=== PATIENT | female | born 1975 | race Two or more races ===

== ENCOUNTER 2019-02-02 15:17 | Inpatient (IN) ==
[2019-02-02] MEDS ORDERED: RINGER'S SOLUTION,LACTATED 1,000 ML IV PRN (18:00)
[2019-02-02] MEDS ORDERED: PENICILLIN G POTASSIUM 5 MILLIONUNT in DEXTROSE 5 % IN WATER 100 ML IV ONE ×2 (18:10)
[2019-02-02] MEDS ORDERED: RINGER'S SOLUTION,LACTATED 1,000 ML IV ONE (18:10)
[2019-02-02] MEDS ORDERED: DEXTROSE 5%-LACTATED RINGERS 1,000 ML IV PRN (18:10)
[2019-02-02] MEDS ORDERED: OXYTOCIN/DEXTROSE 5%-WATER 30 UNITS/500 ML BAG IV ONE (18:10)
[2019-02-02] MEDS ORDERED: MISOPROSTOL 100 MCG TABLET VG PRN (18:10)
[2019-02-02] MEDS ORDERED: ONDANSETRON 4 MG TAB.RAPDIS PO PRN (18:10)
[2019-02-02 18:24] LABS: Hematocrit 37.6 % (37.0-47.0); Hemoglobin 12.7 gm/dL (12.5-16.0); Mean Cell Volume 88.7 fl (78-100); Mean Corpuscular Hgb Conc 33.8 g/dl (32-36); Mean Platelet Volume 10.3 fl (8-12.5); Neutrophil # 8.9 K/mm3 (1.3-6.0); Neutrophil % 70.5 % (42-75.0); Platelet Count 373 K/mm3 (150-450); Red Blood Count 4.24 M/mm3 (4.2-5.4); Red Cell Distribution Width 12.6 % (11.5-14.0); White Blood Count 12.6 K/mm3 (4.0-10.5)
[2019-02-02 18:41] LABS: Albumin * 2.7 gm/dl (3.4-5.0); Anion Gap 12.9 mmol/L (6.8-13.8); BUN/Creatinine Ratio 22.4 (9.0-21.6); Bilirubin, Total 0.2 mg/dL (0.0-1.1); Ca. Corrected For Albumin 9.5 mg/dL (8.4-10.2); Calcium * 8.8 mg/dL (7.9-10.9); Carbon Dioxide 23.9 mmol/L (24-32.6); Potassium 3.8 mmol/L (3.4-4.6); Total Protein 6.8 gm/dL (6.2-8.2)
[2019-02-02] MEDS: PENICILLIN G POTASSIUM 2.5 MILLIONUNT in DEXTROSE 5 % IN WATER 100 ML IV SCH ×2 (22:53)
[2019-02-02 23:51] LABS: Cocaine Ur Negative (NEGATIVE); Urine Barbiturate Negative (NEGATIVE); Urine Benzodiazepines Negative (NEGATIVE); Urine Opiates Negative (NEGATIVE); Urine PCP Negative (NEGATIVE); Urine THC Negative (NEGATIVE)
[2019-02-03] MEDS: PENICILLIN G POTASSIUM 2.5 MILLIONUNT in DEXTROSE 5 % IN WATER 100 ML IV SCH ×4 (02:17→05:56)
[2019-02-03] MEDS ORDERED: ONDANSETRON HCL/PF 2 MG/ML VIAL IV PRN (04:33)
[2019-02-03] MEDS ORDERED: BUPIVACAINE HCL/0.9 % NACL/PF 250 ML EP PRN (04:33)
[2019-02-03] MEDS ORDERED: NALOXONE HCL 1 MG/1 ML SYRG IV PRN (04:33)
[2019-02-03] MEDS ORDERED: fentaNYL CITRATE/PF 50 MCG/ML AMPUL ONE (04:44)
[2019-02-03] MEDS ORDERED: BUPIVACAINE HCL/0.9 % NACL/PF 250 ML CARTRIDGE ONE (04:44)
[2019-02-03] MEDS ORDERED: fentaNYL CITRATE/PF 50 MCG/ML AMPUL IT SCH (04:45)
--- NOTE | 2019-02-03 05:16 | ANES ---
Anesthesia Pre Procedure Eval Vitals/Labs: Last Vital Signs Temp 37.0 C 02/02/19 20:12 Pulse 115 H 02/02/19 20:12 Resp 18 02/02/19 20:12 BP 140/95 H 02/02/19 20:12 Pulse Ox 99 02/02/19 20:12 HOME MEDICATIONS [id number] 400 mcg-om3 35 mg-dha 25 mg-epa 5 mg-fish oil chewable tablet 2 tab PO tab 08/10/18 [Last Taken 02/02/19] inulin 2 gram chewable tablet g PO tab 08/10/18 [Last Taken 02/02/19] lactobacillus combination no.8 3 billion cell capsule 3,000 mmu cells PO DAILY 08/10/18 [Last Taken Unknown] docusate sodium 100 mg capsule 100 mg PO DAILY PRN 11/22/18 [Last Taken 02/01/19] breast pump See Dose Instructions .ROUTE .MEDSUPPLY #1 ea 01/05/19 [Last Taken Unknown] heparin (porcine) 5,000 unit/mL (1 mL) injection cartridge 5,000 unit SUBCUT Q12H #16 ml 01/24/19 [Last Taken 02/02/19] Allergies/Adverse Reactions: Allergies Allergy/AdvReac Type Severity Reaction Status Date / Time No Known Allergies Allergy Verified 02/02/19 18:17 - Planned Procedure Planned Procedure: MEDICAL INDUCTION Medication List Reviewed:: Yes Allergies Verified: Yes Medical History (Updated 08/10/18 @ 17:14 by Adam Noonan DO) Cervical disc disorder at C6-C7 level with radiculopathy (Chronic) History of deep venous thrombosis (Chronic) Occurred while on OCPs Advanced maternal age affecting , antepartum (Acute) Herniated cervical disc C-6 Anxiety No medication Depression no medication Kidney stone [place] teeth extracted Anemia as a teenager DVT (deep venous thrombosis) Left leg- taking OCP, she was testing MTHFR. Femur fracture, left Shoulder fracture, right Surgical History (Updated 01/06/18 @ 11:18 by Madina Starks LPN) H/O kyphoplasty History of open reduction and internal fixation (ORIF) procedure branden to left femur age 17 Family History (Updated 08/10/18 @ 13:31 by Jeanne Shipley RN) Mother Diabetes Hypertension Pulmonary embolism Grandmother , paternal Alzheimers disease Father Alive and well - Family Anesthesia History Family History:: no untoward family reactions to anesthesia, no familial bleeding tendencies, no family history of clotting disorders, no family history of premature - Airway/Neck/Teeth Within Normal Limits:: Yes Teeth Condition: intact Neck Exam: full range of motion Mallampatti Score: 2 Thyromental (T-M) distance: > 6 cm Mandibulo Hyoid distance: > 3 cm - Respiratory Respiratory Physical: lungs clear Smoking Status: Never smoker Sleep Apnea currently treated: No Sleep Apnea by current assessment: No - Cardiovascular Tolerate Activity: Fair Heart Sounds: S1 & S2, Regular - Anesthesia Assessment and Plan ASA Class: PS, II Anesthesia Type Plan: Epidural - CSE for labor epidural
--- NOTE | 2019-02-03 05:34 | HP ---
Chief Complaint - Chief Complaint Date of Service: 02/03/19 Time of Service: 05:33 Chief Complaint: medical induction of labor History of Present Illness: 43 yo admitted at 37 wks for induction of labor due to gestational hypertension. This complicated by AMA, GHTN, h/o DVT, herniated disc C6-7, h/o anxiety/depression (not active). Rh positive Rubella immune GBS positive Medical History (Updated 02/03/19 @ 05:34 by Adam Noonan DO) Cervical disc disorder at C6-C7 level with radiculopathy (Chronic) History of deep venous thrombosis (Chronic) Occurred while on OCPs Advanced maternal age affecting , antepartum (Acute) Herniated cervical disc C-6 Anxiety No medication Depression no medication Kidney stone [place] teeth extracted Anemia as a teenager DVT (deep venous thrombosis) Left leg- taking OCP, she was testing MTHFR. Femur fracture, left Shoulder fracture, right Surgical History: Surgical History (Updated 02/03/19 @ 05:34 by Adam Noonan DO) H/O kyphoplasty History of open reduction and internal fixation (ORIF) procedure branden to left femur age 17 Family History: Family History (Updated 08/10/18 @ 13:31 by Jeanne Shipley RN) Mother Diabetes Hypertension Pulmonary embolism Grandmother , paternal Alzheimers disease Father Alive and well Social History: (Last Reviewed 02/03/19 @ 05:55 by Adam Noonan DO) Social History: Marital status: household members: significant other, children number of children: 2 current occupational status: employed 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 Highest education level completed: Bachelor's degree Service: No Tobacco: Smoking Status: Never smoker Alcohol: alcohol intake: current alcohol intake frequency: holiday/special occasion details: none since + UPT Substance Use: substance use type: does not use Dietary Habits: caffeine: Yes caffeine comment: 2/week Type: coffee Exercise: Physical activity type: none Review Of Systems (GEN) - Review of Systems Generalized/Overall Review: Present: No Symptoms Reported EENTM: Present: No Symptoms Reported Respiratory: Present: No Symptoms Reported Cardiac: Present: No Symptoms Reported Abdominal: Present: No Symptoms Reported Genitourinary: Present: No Symptoms Reported Musculoskeletal: Present: No Symptoms Reported Neurological: Present: No Symptoms Reported Skin: Present: No Symptoms Reported Endocrine: Present: No Symptoms Reported Immunizations: IMMUNIZATION HX Immunizations Up to Date Yes Allergies/Adverse Reactions: Allergies Allergy/AdvReac Type Severity Reaction Status Date / Time No Known Allergies Allergy Verified 02/02/19 18:17 Home Medications: HOME MEDICATIONS [id number] 400 mcg-om3 35 mg-dha 25 mg-epa 5 mg-fish oil chewable tablet 2 tab PO tab 08/10/18 [Last Taken 02/02/19] inulin 2 gram chewable tablet g PO tab 08/10/18 [Last Taken 02/02/19] lactobacillus combination no.8 3 billion cell capsule 3,000 mmu cells PO DAILY 08/10/18 [Last Taken Unknown] docusate sodium 100 mg capsule 100 mg PO DAILY PRN 11/22/18 [Last Taken 02/01/19] breast pump See Dose Instructions .ROUTE .MEDSUPPLY #1 ea 01/05/19 [Last Taken Unknown] heparin (porcine) 5,000 unit/mL (1 mL) injection cartridge 5,000 unit SUBCUT Q12H #16 ml 01/24/19 [Last Taken 02/02/19] Exam - Exam Vital Signs: Vital Signs - Last Taken Temp 37.0 C 02/02/19 20:12 Pulse 115 H 02/02/19 20:12 Resp 18 02/02/19 20:12 BP 140/95 H 02/02/19 20:12 Pulse Ox 99 02/02/19 20:12 Constitutional: Present: Alert, Oriented x3, Cooperative, No distress ENT Exam: Present: hearing grossly normal Breasts: Present: Exam deferred Respiratory: Present: lungs clear, no respiratory distress Cardiovascular/Chest: Present: regular rate, rhythm Abdomen: Present: soft, nontender, no rebound tenderness, other - gravid /Rectal: Present: Other - 3/50/-2 Extremity: Present: no pedal edema, no calf tenderness Skin Exam: Present: normal color, warm/dry, no cyanosis Lymphatic: Present: no adenopathy Neurologic: Present: alert, normal mood/affect, oriented x 3 Appearance: Present: appropriate appearance, appropriate insight Eye contact: Present: cooperative, good eye contact Thoughts: Present: normal thought pattern, normal mood /affect Diagnostic Studies: Abnormal Lab Results 09/04/19 09/04/19 Range/Units 18:20 18:20 WBC 12.6 H (4.0-10.5) K/mm3 Immature Gran % (Auto) 1.00 H (0.001-0.429) % Immature Gran # (Auto) 0.12 H (0.000-0.0310) K/mm3 Neutrophils # 8.9 H (1.3-6.0) K/mm3 Carbon Dioxide 23.9 L (24-32.6) mmol/L BUN/Creatinine Ratio 22.4 H (9.0-21.6) Random Glucose 120 H (70-110) mg/dL ALT 17 L (19-67) U/L Albumin 2.7 L (3.4-5.0) gm/dl Laboratory Results WBC 12.6 K/mm3 (4.0-10.5) H 02/02/19 18:20 RBC 4.24 M/mm3 (4.2-5.4) 02/02/19 18:20 Hgb 12.7 gm/dL (12.5-16.0) 02/02/19 18:20 Hct 37.6 % (37.0-47.0) 02/02/19 18:20 MCV 88.7 fl (78-100) 02/02/19 18:20 MCH 30.0 pg (27-31) 02/02/19 18:20 MCHC 33.8 g/dl (32-36) 02/02/19 18:20 RDW 12.6 % (11.5-14.0) 02/02/19 18:20 Plt Count 373 K/mm3 (150-450) 02/02/19 18:20 MPV 10.3 fl (8-12.5) 02/02/19 18:20 Immature Gran % (Auto) 1.00 % (0.001-0.429) H 02/02/19 18:20 Immature Gran # (Auto) 0.12 K/mm3 (0.000-0.0310) H 02/02/19 18:20 70.5 % (42-75.0) 02/02/19 18:20 20.9 % (20-51) 02/02/19 18:20 7.1 % (0.0-9) 02/02/19 18:20 0.3 % (0.0-3.0) 02/02/19 18:20 0.2 % (0.0-1.0) 02/02/19 18:20 Nucleated RBC % 0.0 k/mm3 (0-1) 02/02/19 18:20 8.9 K/mm3 (1.3-6.0) H 02/02/19 18:20 2.63 k/mm3 (1.5-3.5) 02/02/19 18:20 0.9 k/mm3 (0.0-1.0) 02/02/19 18:20 0.0 k/mm3 (0.0-0.7) 02/02/19 18:20 Absolute Basophils 0.0 k/mm3 (0.0-0.1) 02/02/19 18:20 Sodium 136 mmol/L (132-142) 02/02/19 18:20 136 mmol/L (130-142) 02/02/19 18:20 Potassium 3.8 mmol/L (3.4-4.6) 02/02/19 18:20 Chloride 103 mmol/L (97-106) 02/02/19 18:20 Carbon Dioxide 23.9 mmol/L (24-32.6) L 02/02/19 18:20 12.9 mmol/L (6.8-13.8) 02/02/19 18:20 BUN 19 mg/dL (3-23) D 02/02/19 18:20 0.85 mg/dL (0.4-1.4) 02/02/19 18:20 Est GFR (Non-Af Amer) 78 mL/min (60-130) 02/02/19 18:20 22.4 (9.0-21.6) H 02/02/19 18:20 120 mg/dL (70-110) H 02/02/19 18:20 Calcium 8.8 mg/dL (7.9-10.9) 02/02/19 18:20 Calcium Adj for Albumin 9.5 mg/dL (8.4-10.2) 02/02/19 18:20 0.2 mg/dL (0.0-1.1) 02/02/19 18:20 AST 19 U/L (0-48) 02/02/19 18:20 ALT 17 U/L (19-67) L 02/02/19 18:20 130 U/L (50-170) 02/02/19 18:20 6.8 gm/dL (6.2-8.2) 02/02/19 18:20 2.7 gm/dl (3.4-5.0) L 02/02/19 18:20 Negative (NEGATIVE) 02/02/19 19:15 Negative (NEGATIVE) 02/02/19 19:15 Ur Phencyclidine Scrn Negative (NEGATIVE) 02/02/19 19:15 Urine Amphetamine Negative (NEGATIVE) 02/02/19 19:15 U Benzodiazepines Scrn Negative (NEGATIVE) 02/02/19 19:15 Negative (NEGATIVE) 02/02/19 19:15 Negative (NEGATIVE) 02/02/19 19:15 NST reactive. Assessment/Plan - Assessment/Plan (1) Gestational hypertension Assessment: Admit for pitocin induction of labor. Epidural PRN. SCDs while in bed. IV PCN per GBS protocol. Problem: Acute Qualifiers: Trimester: third trimester Qualified Code(s): O13.3 - Gestational [-induced] hypertension without significant proteinuria, third trimester (2) Group B streptococcal carriage complicating Problem: Acute (3) Cervical disc disorder at C6-C7 level with radiculopathy Problem: Chronic (4) History of deep venous thrombosis Problem: Chronic (5) Advanced maternal age affecting , antepartum Problem: Acute
--- NOTE | 2019-02-03 05:38 | ANES ---
Post Anesthesia Discharge - Transfer of Care Transfer of Care handoff given to nurse: Yes - Discharge from PACU Discharge from PACU when meets criteria: Yes - Comfortable post CSE.
--- NOTE | 2019-02-03 05:44 | ANES ---
Anesthesia Procedure Note Procedure Note: ANESTHESIA PROCEDURE NOTE Date of Procedure: [02/03/2019 Time of procedure: 5:15 AM. Performed by: NADINE Wayne CRNA, MSN Line Ordering Clinician: La Calixto RN. Preprocedure diagnosis: Active labor, labor pain. Post procedure diagnosis: Same. Procedure:Epidural for labor analgesia L3-4. Indications: Labor pain. Findings: See below. Details of the procedure: The patient was placed on the side of the bed in sitting positionand prepped with DuraPrep then draped in a sterile fashion. Lidocaine 1% was infiltrated to the skin and subcutaneous tissues at the level of the L3-4 interspace. An 18-gauge Touhy needle was used to approach the epidural space with loss of resistance technique. Once loss of resistance was achieved a 27-gauge spinal needle was passed through the epidural needle and CSF was contacted. After CSF returned, 20 mcg of fentanyl was injected in the spinal needle was removed the epidural catheter was then threaded approximately 4 cm in the epidural needle was removed. The catheter was taped in place and after careful aspiration blood was noted in the epidural catheter. 2 mL of 1.5% lidocaine with 1-200,000 epinephrine was injected without change in heart rate. After completing the securing of the epidural catheter an additional 3 mL of lidocaine 1.5% with 1-200,000 of epinephrine was injected. At this time the heart rate changed from initial rate of 100 to a transient increase to 120, without patient change in feeling. Staff was then instructed not to initiate any epidural medication until it was okayed by me. I intend to verify the lack of communication with the venous system prior to proceeding with epidural therapy. EBL: Minimal. Fluids: N/A. Specimen: N/A. Post procedure condition: The patient tolerated the procedure well with good relief. No complications were noted. Thank you for this consultation. Dean Garcia CRNA, NADINE, MSN
--- NOTE | 2019-02-03 05:53 | ANES ---
Post Anesthesia Assessment - Vital Signs Vitals: Last Vital Signs Temp 37.0 C 02/02/19 20:12 Pulse 115 H 02/02/19 20:12 Resp 18 02/02/19 20:12 BP 140/95 H 02/02/19 20:12 Pulse Ox 99 02/02/19 20:12 Airway Patency: Normal - Mental Status Level Of Consciousness: Awake, Alert, Appropriate - Pain Level Pain Score: 0 - N/V Assessment Nausea/Vomiting Presence: None Dehydration:: No
--- NOTE | 2019-02-03 06:04 | PN ---
Progess Note - Interim Date: 02/03/19 Time: 06:01 Narrative: 02/03/19 06:01 Patient comfortable with epidural Vital signs stable. Pitocin at 3 mu/min. FHT: 140 baseline, moderate variable decelerations after epidural contractions q 2-3 min Cervix: 7-8/80/-2 Impression: Intrauterine at 37 1/7 weeks induction of labor for gestational hypertension. GBS carrier-status post 3 doses of penicillin. Plan: Anticipate normal spontaneous vaginal delivery within the next hour.
[2019-02-03] MEDS ORDERED: GLYCERIN/WITCH HAZEL LEAF 40 APPL BOX TP PRN (07:50)
[2019-02-03] MEDS ORDERED: DOCUSATE SODIUM 100 MG CAPSULE PO PRN (07:50)
[2019-02-03] MEDS ORDERED: OXYTOCIN/DEXTROSE 5%-WATER 30 UNITS/500 ML BAG IV ONE (07:50)
[2019-02-03] MEDS ORDERED: BENZOCAINE/MENTHOL 81 SPRAY CAN TP PRN (07:50)
[2019-02-03] MEDS ORDERED: BISACODYL 10 MG SUPP.RECT RC PRN (07:50)
[2019-02-03] MEDS ORDERED: HYDROCORTISONE 30 APPL TUBE TP PRN (07:50)
[2019-02-03] MEDS ORDERED: IBUPROFEN 800 MG TABLET PO PRN (07:50)
[2019-02-03] MEDS ORDERED: SENNOSIDES 8.6 MG TABLET PO PRN (07:50)
--- NOTE | 2019-02-03 07:54 | OR ---
Operative Report - Dictated Report Narrative: Spontaneous vaginal delivery of viable female at 0730 on 02/03/2019 with Apgars 7 and 8, weighing 3188 g in LINA position. Cord clamping delayed approximately 30 seconds then baby transferred to warmer for further assessment due to poor tone and color. Placenta delivered complete, intact, with three vessel cord Estimated blood loss: Less than 50 ml Anesthesia: Epidural Lacerations: First-degree vaginal laceration with no repair needed History for History for Definition: * The number of deliveries resulting in a live the patient experienced prior to current hospitalization * The previous delivery of live twins or any live multiple gestation is considered one live event. *If primagravida or nulliparous is documented select zero for the number of previous live births. Live Events: Live Events: 2
[2019-02-03] MEDS ORDERED: IBUPROFEN 800 MG TABLET ONE (08:10)
[2019-02-03] MEDS: IBUPROFEN 800 MG TABLET PO PRN ×2 (08:12→19:02)
[2019-02-03] MEDS ORDERED: oxyCODONE HCL/ACETAMINOPHEN 1 TAB TABLET ONE (10:25)
[2019-02-03] MEDS: oxyCODONE HCL/ACETAMINOPHEN 1 TAB TABLET PO PRN ×2 (10:26→20:32)
[2019-02-03] MEDS: [UNRECOGNIZED DRUG - OTHER] PO SCH (10:30)
[2019-02-03] MEDS: [UNRECOGNIZED DRUG - OTHER] PO SCH (10:30)
[2019-02-03] MEDS: DOCUSATE SODIUM 100 MG CAPSULE PO SCH ×2 (10:30→20:08)
[2019-02-03] MEDS: ENOXAPARIN SODIUM 40 MG/0.4 ML SYRG SC SCH (17:06)
[2019-02-04] MEDS: oxyCODONE HCL/ACETAMINOPHEN 1 TAB TABLET PO PRN ×3 (01:42→22:26)
[2019-02-04] MEDS: DOCUSATE SODIUM 100 MG CAPSULE PO SCH ×2 (08:14→22:26)
[2019-02-04] MEDS: IBUPROFEN 800 MG TABLET PO PRN ×2 (08:15→22:25)
[2019-02-04] MEDS: [UNRECOGNIZED DRUG - OTHER] PO SCH (09:48)
[2019-02-04] MEDS: [UNRECOGNIZED DRUG - OTHER] PO SCH (09:48)
[2019-02-04] MEDS ORDERED: LABETALOL HCL 5 MG/ML VIAL IV ONE (13:08)
[2019-02-04 13:23] LABS: Hematocrit 36.6 % (37.0-47.0); Mean Cell Volume 90.1 fl (78-100); Mean Corpuscular Hemoglobin 29.6 pg (27-31); Mean Corpuscular Hgb Conc 32.8 g/dl (32-36); Neutrophil # 7.6 K/mm3 (1.3-6.0); Neutrophil % 61.5 % (42-75.0); Platelet Count 305 K/mm3 (150-450); Red Blood Count 4.06 M/mm3 (4.2-5.4); Red Cell Distribution Width 12.8 % (11.5-14.0); White Blood Count 12.3 K/mm3 (4.0-10.5)
[2019-02-04 13:34] LABS: Albumin * 2.5 gm/dl (3.4-5.0); Anion Gap 13.3 mmol/L (6.8-13.8); BUN/Creatinine Ratio 11.6 (9.0-21.6); Bilirubin, Total 0.2 mg/dL (0.0-1.1); Calcium * 9.1 mg/dL (7.9-10.9); Carbon Dioxide 25.8 mmol/L (24-32.6); Potassium 4.1 mmol/L (3.4-4.6); Total Protein 6.6 gm/dL (6.2-8.2)
--- NOTE | 2019-02-04 13:47 | PN ---
Subjective - Date and Time Seen Date: 02/04/19 Time: 13:33 Objective - Vitals Vitals: Last Vital Signs Temp 36.0 C 02/04/19 13:14 Pulse 82 02/04/19 13:14 Resp 18 02/04/19 13:14 BP 161/96 H 02/04/19 13:15 Pulse Ox 98 02/04/19 13:14 Patient denies headache, visual changes, epigastric pain or other complaints. Lochia wnl abdomen - soft, nontender Uterus -firm, at umbilicus - 1 DTR-3/4, no clonus, no calf tenderness Impression: day #1 - s/p spontaneous vaginal delivery. Severe range blood pressures- hypertension versus severe preeclampsia. Plan: We will give patient IV labetalol and oral labetalol to control blood pressures. Seizure precautions until preeclamptic lab work back. - Abnormal Lab Findings Abnormal Lab Findings: Abnormal Lab Results 02/04/19 Range/Units 13:15 WBC 12.3 H (4.0-10.5) K/mm3 RBC 4.06 L (4.2-5.4) M/mm3 Hgb 12.0 L (12.5-16.0) gm/dL Hct 36.6 L (37.0-47.0) % Immature Gran % (Auto) 1.40 H (0.001-0.429) % Immature Gran # (Auto) 0.17 H (0.000-0.0310) K/mm3 Neutrophils # 7.6 H (1.3-6.0) K/mm3 Cauti Physician Documentation - Urinary Catheter Management Urethral (Teixeira) Date of Insertion: 02/03/19 Time of Insertion: 06:00 Assessment/Plan - Problems/Diagnosis (1) Gestational hypertension Problem: Acute Qualifiers: Trimester: third trimester Qualified Code(s): O13.3 - Gestational [-induced] hypertension without significant proteinuria, third trimester (2) Group B streptococcal carriage complicating Problem: Acute (3) Cervical disc disorder at C6-C7 level with radiculopathy Problem: Chronic (4) History of deep venous thrombosis Problem: Deleted (5) Advanced maternal age affecting , antepartum Problem: Acute
[2019-02-04 14:04] LABS: Random Urine Total Protein 14.9 mg/dL (0-12)
[2019-02-04] MEDS: LABETALOL HCL 100 MG TABLET PO SCH ×2 (15:00→22:25)
[2019-02-04] MEDS: ENOXAPARIN SODIUM 40 MG/0.4 ML SYRG SC SCH (16:12)
[2019-02-05] MEDS: LABETALOL HCL 100 MG TABLET PO SCH ×2 (09:59→20:15)
[2019-02-05] MEDS: DOCUSATE SODIUM 100 MG CAPSULE PO SCH ×2 (09:59→20:14)
[2019-02-05] MEDS: [UNRECOGNIZED DRUG - OTHER] PO SCH (10:00)
[2019-02-05] MEDS: IBUPROFEN 800 MG TABLET PO PRN ×2 (10:00→20:15)
[2019-02-05] MEDS: [UNRECOGNIZED DRUG - OTHER] PO SCH (10:00)
--- NOTE | 2019-02-05 13:35 | PN ---
Subjective - Date and Time Seen Date: 02/05/19 Time: 13:27 Objective - Review of Systems Generalized/Overall Review: Reports: No Symptoms Reported EENTM: Reports: No Symptoms Reported Respiratory: Reports: No Symptoms Reported Cardiac: Reports: No Symptoms Reported Abdominal: Reports: No Symptoms Reported Genitourinary Symptoms: Reports: Other - uterine cramping Musculoskeletal Complaints: Reports: Neck Pain - chronic - no change Neurological: Reports: Anxiety - mild. Denies: Headache, Depressed, Emotional Problems, Numbness, Parasthesia, Seizure, Tingling, Tremors, Weakness Skin: Reports: No Symptoms Reported Endocrine: Reports: No Symptoms Reported - Vitals Vitals: Last Vital Signs Temp 36.2 C 02/05/19 09:00 Pulse 100 02/05/19 09:59 Resp 16 02/05/19 09:00 BP 140/73 H 02/05/19 09:59 Pulse Ox 95 02/05/19 09:00 - Abnormal Lab Findings Abnormal Lab Findings: Abnormal Lab Results 02/04/19 02/04/19 Range/Units 13:07 13:15 Albumin 2.5 L (3.4-5.0) gm/dl U Random Total Protein 14.9 H (0-12) mg/dL U [place] Prot/Creat Ratio 224 H (0-199) mg/gm - Exam Constitutional: Present: Alert, Oriented x3, Cooperative, No distress ENT Exam: Present: hearing grossly normal Breasts: Present: Exam deferred Respiratory: Present: no respiratory distress Cardiovascular/Chest: Present: normal peripheral pulses, regular rate, rhythm Abdomen: Present: soft, nontender, no rebound tenderness, other - Uterus at u-2 Extremity: Present: no calf tenderness, lower extremity edema - trace Skin Exam: Present: normal color, warm/dry, no cyanosis Neurologic: Present: alert, normal mood/affect, oriented x 3 Appearance: Present: appropriate appearance, appropriate insight Eye contact: Present: cooperative, good eye contact Thoughts: Present: normal thought pattern, normal mood /affect Cauti Physician Documentation - Urinary Catheter Management Urethral (Teixeira) Date of Insertion: 02/03/19 Time of Insertion: 06:00 Assessment/Plan Plan Narrative: Discharge to home with blood pressure check in the office in 3 to 4 days. Will wean off of antihypertensive medication as tolerated. Preeclampsia precautions. Continue Lovenox for a full 6 weeks . - Problems/Diagnosis (1) Gestational hypertension Problem: Acute Qualifiers: Trimester: third trimester Qualified Code(s): O13.3 - Gestational [pr egnancy-induced] hypertension without significant proteinuria, third trimester (2) Group B streptococcal carriage complicating Problem: Inactive (3) Cervical disc disorder at C6-C7 level with radiculopathy Problem: Chronic (4) History of deep venous thrombosis Problem: Chronic (5) Advanced maternal age affecting , antepartum Problem: Inactive
[2019-02-05] MEDS: ENOXAPARIN SODIUM 40 MG/0.4 ML SYRG SC SCH (17:45)
[2019-02-05] MEDS: oxyCODONE HCL/ACETAMINOPHEN 1 TAB TABLET PO PRN ×2 (20:15→23:17)
[2019-02-05 20:32] VITALS: BP 139/84
== END 2019-02-05 23:59 | disposition home or self-care (01) | DRG 807 ==
LOC: OB 18:02
PROVIDERS: ADMIT Obstetrics & Gynecology; ATTEND Obstetrics & Gynecology
CPT/HCPCS: 36415; 59025; 80053; 80307; 82570; 84155; 84156; 85025; 88307